=== PATIENT | female | born 1965 | race Two or more races ===

== ENCOUNTER 2025-01-08 09:03 | Inpatient (IN) | payer OTHER ==
[~2025-01-08] VITALS: Ht 182.9 cm; Wt 140.2 kg
[2025-01-08] MEDS ORDERED: CRESTOR40 MG (09:53)
[2025-01-08] MEDS ORDERED: AVAPRO300 MG (09:53)
[2025-01-08] MEDS ORDERED: ZETIA10 MG (09:53)
[2025-01-08] MEDS ORDERED: HYDROCHLOROTH12.5 M2 (09:54)
[2025-01-08] MEDS ORDERED: NORVASC5 MG (09:54)
[2025-01-08] MEDS ORDERED: 0.9 % SODIUM CHLORIDE 1,000 ML IV SCH ×2 (10:30→20:45)
[2025-01-08 11:19] LABS: BASO % 0.4 % (0.1-1.2); EOS # 0.07 (0.04-0.54); EOS % 1.4 % (0.7-7.0); LYMPH # 1.91 (1.18-3.74); LYMPH % 38.0 % (19.3-53.1); MEAN PLATELET VOLUME 10.00 fl (9.4-12.4); MONO # 0.37 (0.24-0.82); MONO % 7.4 % (4.7-12.5); NEUT # 2.64 (1.56-6.13); NEUT % 52.4 % (34.0-71.1); RED CELL DISTRIBUTION WIDTH 17.3 % (11.6-14.4)
[2025-01-08 11:47] LABS: URINE APPEARANCE Clear; URINE BILIRRUBIN Negative (NEGATIVE); URINE BLOOD Moderate; URINE COLOR Yellow; URINE GLUCOSE Negative (NEGATIVE); URINE KETONE Negative (NEGATIVE); URINE LEUKOCYTE Negative; URINE NITRATE Positive; URINE PROTEIN Negative (NEGATIVE); URINE UROBILINOGEN 0.2 E.U./dl
[2025-01-08 11:48] LABS: URINE BACTERIA 2228.4 uL (0.0-1933); URINE EPITHELIAL CELLS 5.8 uL (0.0-38.8); URINE WBC 5.2 uL (0.0-23.2)
[2025-01-08 11:48] LABS: ALT/SGPT 14.0 U/L (12-78); AST/SGOT 22.0 U/L (15-37); BILIRUBIN TOTAL 0.44 mg/dL (0.3-1.2); BUN CREA RATIO 11.0 (7.0-25.0); CREATININE SERUM 0.88 mg/dL (0.55-1.02); GFR 66.0; GLOBULINA 4.1 G/DL (2.4-3.5); GLUCOSE FASTING 94.0 mg/dL (65-100); OSMOLALITY SERUM 282.0 MOSM/KG (275-295)
[2025-01-08 12:03] LABS: URINE CAST 0.14 uL (0.0-1.40); URINE RBC 1.3 uL (0.0-20.8)
[2025-01-08] MEDS ORDERED: ESTROGENS, CONJUGATED 25 MG VIAL IV ONE (20:15)
[2025-01-08] MEDS ORDERED: AMLODIPINE BESYLATE 5 MG TABLET PO SCH (20:42)
[2025-01-08] MEDS ORDERED: FAMOTIDINE/PF 20 MG in 0.9 % SODIUM CHLORIDE 8 ML IV PUSH SCH (20:42)
[2025-01-08] MEDS ORDERED: IRON FUM,PS/FOLIC/BCOMP,C NO.9 1 CAP CAPSULE PO SCH (20:43)
[2025-01-08] MEDS ORDERED: ONDANSETRON HCL 4 MG in 0.9 % SODIUM CHLORIDE 50 ML IV PRN (20:45)
[2025-01-08] MEDS ORDERED: ACETAMINOPHEN 500 MG GEL..CAP PO PRN (20:45)
[2025-01-08] MEDS ORDERED: CEFTRIAXONE SODIUM 2,000 MG in 0.9 % SODIUM CHLORIDE 100 ML IV SCH (20:47)
[2025-01-09 01:27] VITALS: BP 163/72
[2025-01-09 01:30] LABS: INR 0.99
[2025-01-09 08:14] VITALS: BP 152/72; O2SAT 100
[2025-01-09] MEDS ORDERED: ROSUVASTATIN CALCIUM 20 MG TABLET PO SCH (09:00)
[2025-01-09] MEDS ORDERED: IRBESARTAN 300 MG TABLET PO SCH (09:00)
[2025-01-09 16:05] VITALS: BP 172/64; O2SAT 100
[2025-01-09 16:54] LABS: URINE APPEARANCE Clear; URINE BILIRRUBIN Negative (NEGATIVE); URINE BLOOD Moderate; URINE COLOR Yellow; URINE GLUCOSE Negative (NEGATIVE); URINE KETONE Negative (NEGATIVE); URINE LEUKOCYTE Small; URINE NITRATE Negative; URINE PROTEIN Negative (NEGATIVE); URINE UROBILINOGEN 1.0 E.U./dl
[2025-01-09 16:58] LABS: URINE BACTERIA 74.3 uL (0.0-1933); URINE EPITHELIAL CELLS 46.1 uL (0.0-38.8); URINE RBC 238.0 uL (0.0-20.8); URINE WBC 52.7 uL (0.0-23.2)
[2025-01-09 17:03] LABS: URINE CAST 0.00 uL (0.0-1.40)
[2025-01-09 18:33] VITALS: BP 161/84; O2SAT 97
[2025-01-10 00:37] LABS: BASO % 0.4 % (0.1-1.2); EOS # 0.10 (0.04-0.54); EOS % 1.3 % (0.7-7.0); LYMPH # 2.18 (1.18-3.74); LYMPH % 28.8 % (19.3-53.1); MEAN PLATELET VOLUME 10.20 fl (9.4-12.4); MONO # 0.57 (0.24-0.82); MONO % 7.5 % (4.7-12.5); NEUT # 4.65 (1.56-6.13); NEUT % 61.5 % (34.0-71.1); RED CELL DISTRIBUTION WIDTH 17.6 % (11.6-14.4)
[2025-01-10 02:59] VITALS: BP 147/65; O2SAT 100
[2025-01-10 08:48] VITALS: BP 180/80
[2025-01-10 12:21] LABS: BASO % 0.5 % (0.1-1.2); EOS # 0.09 (0.04-0.54); EOS % 1.5 % (0.7-7.0); LYMPH # 1.74 (1.18-3.74); LYMPH % 29.0 % (19.3-53.1); MEAN PLATELET VOLUME 10.20 fl (9.4-12.4); MONO # 0.53 (0.24-0.82); MONO % 8.8 % (4.7-12.5); NEUT # 3.58 (1.56-6.13); NEUT % 59.5 % (34.0-71.1); RED CELL DISTRIBUTION WIDTH 17.7 % (11.6-14.4)
[2025-01-10 13:19] LABS: ALT/SGPT 10.0 U/L (12-78); AST/SGOT 6.0 U/L (15-37); BILIRUBIN TOTAL 0.64 mg/dL (0.3-1.2); BUN CREA RATIO 13.0 (7.0-25.0); CREATININE SERUM 0.89 mg/dL (0.55-1.02); GFR 65.14; GLOBULINA 3.3 G/DL (2.4-3.5); GLUCOSE FASTING 136.0 mg/dL (65-100); OSMOLALITY SERUM 287.0 MOSM/KG (275-295)
[2025-01-10 16:51] VITALS: BP 185/73; O2SAT 98
[2025-01-11 01:39] VITALS: BP 154/65; O2SAT 98
[2025-01-11 06:28] LABS: BASO % 0.3 % (0.1-1.2); EOS # 0.09 (0.04-0.54); EOS % 1.2 % (0.7-7.0); LYMPH # 1.82 (1.18-3.74); LYMPH % 23.7 % (19.3-53.1); MEAN PLATELET VOLUME 9.90 fl (9.4-12.4); MONO # 0.72 (0.24-0.82); MONO % 9.4 % (4.7-12.5); NEUT # 4.95 (1.56-6.13); NEUT % 64.5 % (34.0-71.1); RED CELL DISTRIBUTION WIDTH 17.7 % (11.6-14.4)
[2025-01-11 09:19] VITALS: BP 151/66
== END 2025-01-11 13:14 | disposition home or self-care (01) | DRG 761 ==
LOC: ER 09:03 → SEC-K 20:55 → MEDJ 01-09 15:20
PROVIDERS: Emergency Medicine; General Practice; ADMIT Internal Medicine; ATTEND Internal Medicine
PROC: BW21ZZZ Computerized Tomography (CT Scan) of Abdomen and Pelvis (ICD-10-PCS; principal; 2025-01-08)
PROC: BU4CZZZ Ultrasonography of Uterus and Ovaries (ICD-10-PCS; 2025-01-08)
PROC: 30233L1 Transfusion of Nonautologous Fresh Plasma into Peripheral Vein, Percutaneous Approach (ICD-10-PCS; 2025-01-09)
PROC: 30233N1 Transfusion of Nonautologous Red Blood Cells into Peripheral Vein, Percutaneous Approach (ICD-10-PCS; 2025-01-10)
DX: N93.8 Other specified abnormal uterine and vaginal bleeding (principal); I10 Essential (primary) hypertension; E78.49 Other hyperlipidemia; R68.89 Other general symptoms and signs

== ENCOUNTER 2025-01-23 10:01 | Outpatient (CLI) | payer OTHER ==
[~2025-01-23 10:01] MED LIST: AVAPRO300 MG; CRESTOR40 MG; HYDROCHLOROTH12.5 M2; NORVASC5 MG; ZETIA10 MG
== END 2025-01-23 10:05 | disposition home or self-care (01) ==
LOC: MAMO-SONO 10:01
PROVIDERS: ATTEND Obstetrics & Gynecology
DX: N60.09 Solitary cyst of unspecified breast (principal)

== ENCOUNTER 2025-05-09 12:15 | Inpatient (IN) | payer OTHER ==
[~2025-05-09] VITALS: Ht 182.9 cm; Wt 140.6 kg
[2025-05-09 14:30] VITALS: BP 180/90
[2025-05-09 15:19] LABS: COVID-19 AG NEGATIVE (NEGATIVE)
[2025-05-16] MEDS ORDERED: METRONIDAZOLE/SODIUM CHLORIDE 500 MG/100 ML PIGGYBACK IV ONE (16:34)
[2025-05-16] MEDS ORDERED: CEFAZOLIN SODIUM 1,000 MG VIAL ONE (16:35)
[2025-05-16] MEDS ORDERED: LIDOCAINE HCL 1%/EPINEPHRINE 20ML VIAL IJ ONE (17:50)
[2025-05-16] MEDS ORDERED: BUPIVACAINE HCL/MPF 0.5% 30ML VIAL ONE (17:50)
[2025-05-16] MEDS ORDERED: VISTASEAL DUAL APPICATOR 1 EACH APPL TOP ONE (19:05)
[2025-05-16] MEDS ORDERED: hydrALAZINE HCL 20 MG VIAL ONE (19:34)
[2025-05-16] MEDS ORDERED: THROMBIN,HU/FIBRINOGEN/CALCIUM 4 ML SYRINGE TOP ONE (19:34)
[2025-05-16] MEDS ORDERED: SUGAMMADEX SODIUM 200 MG/2 ML VIAL IV ONE (20:19)
[2025-05-16] MEDS ORDERED: ONDANSETRON HCL 2 MG/ML VIAL IV PRN (20:30)
[2025-05-16] MEDS ORDERED: RINGERS SOLUTION,LACTATED 1,000 ML IV SCH (20:30)
[2025-05-16] MEDS ORDERED: MORPHINE SULFATE 4 MG/ML CARTRIDGE IV PRN (20:30)
[2025-05-16] MEDS ORDERED: OxyCODONE HCL 5 MG TABLET (ROXICODONE) PO PRN (20:30)
[2025-05-16] MEDS ORDERED: DOCUSATE SODIUM 100MG CAP PO SCH (21:00)
[2025-05-16] MEDS ORDERED: FAMOTIDINE/PF 20 MG/2 ML VIAL IV PUSH SCH (21:00)
[2025-05-16 22:52] VITALS: BP 127/55; O2SAT 99
[2025-05-16 23:34] LABS: BUN CREA RATIO 17.0 (7.0-25.0); CREATININE SERUM 0.84 mg/dL (0.55-1.02); GFR 69.64; GLUCOSE FASTING 155.0 mg/dL (65-100); OSMOLALITY SERUM 287.0 MOSM/KG (275-295)
[2025-05-17] VITALS: BP 138/75; O2SAT 97
[2025-05-17] MEDS ORDERED: KETOROLAC TROMETHAMINE 30 MG VIAL IM SCH
[2025-05-17] MEDS ORDERED: CEFAZOLIN SODIUM 1,000 MG VIAL IV SCH (01:00)
[2025-05-17 06:51] LABS: BASO % 0.2 % (0.1-1.2); EOS # 0.01 (0.04-0.54); EOS % 0.2 % (0.7-7.0); LYMPH # 0.99 (1.18-3.74); LYMPH % 18.8 % (19.3-53.1); MEAN PLATELET VOLUME 11.50 fl (9.4-12.4); MONO # 0.34 (0.24-0.82); MONO % 6.5 % (4.7-12.5); NEUT # 3.90 (1.56-6.13); NEUT % 73.9 % (34.0-71.1); RED CELL DISTRIBUTION WIDTH 19.0 % (11.6-14.4)
[2025-05-17 07:43] LABS: BUN CREA RATIO 18.0 (7.0-25.0); CREATININE SERUM 0.68 mg/dL (0.55-1.02); GFR 88.87; GLUCOSE FASTING 110.0 mg/dL (65-100); OSMOLALITY SERUM 282.0 MOSM/KG (275-295)
[2025-05-17 08:09] VITALS: BP 110/46; O2SAT 97
[2025-05-17] MEDS ORDERED: ENOXAPARIN SODIUM 40 MG/0.4 ML SYRINGE SUBCUTANEO SCH (09:00)
[2025-05-17] MEDS ORDERED: DOCUSATE SODIUM 100MG CAP PO SCH (09:00)
[2025-05-17] MEDS ORDERED: AMINO ACIDS/PROTEIN HYDROLYS 30 ML BLIST.PACK PO SCH (17:00)
== END 2025-05-17 15:11 | disposition home or self-care (01) | DRG 741 ==
LOC: ADM 12:15 → EDSTATUS 12:15 → SURG 05-16 12:15 → O/R 05-16 16:00 → SURG 05-16 16:30 → SURH 05-16 21:13
PROVIDERS: ADMIT Obstetrics & Gynecology Gynecologic Oncology; ATTEND Obstetrics & Gynecology Gynecologic Oncology
PROC: 0UT74ZZ Resection of Bilateral Fallopian Tubes, Percutaneous Endoscopic Approach (ICD-10-PCS; 2025-05-16)
PROC: 0UT24ZZ Resection of Bilateral Ovaries, Percutaneous Endoscopic Approach (ICD-10-PCS; 2025-05-16)
PROC: 07BC4ZZ Excision of Pelvis Lymphatic, Percutaneous Endoscopic Approach (ICD-10-PCS; 2025-05-16)
PROC: 0UT94ZZ Resection of Uterus, Percutaneous Endoscopic Approach (ICD-10-PCS; principal; 2025-05-16 16:30)
DX: C54.1 Malignant neoplasm of endometrium (principal)